=== PATIENT | female | born 1995 ===

== ENCOUNTER 2016-08-15 12:30 | Emergency (ER) | payer BC, MEDICAID ==
--- NOTE | 2016-08-15 13:51 | UC ---
Eye Complaint HPI - HPI Summary HPI Summary: In recent days has been recovering from URI sx, sudden onset of b/l eye redness , irritation, tearing, and swelling last night. No visual changes, fever, or purulent drainage. No contact lens use or recent welding/hammering/grinding. - History of Current Complaint Chief Complaint: UCEye Stated Complaint: EYE ISSUE Time Seen by Provider: 08/15/16 13:22 Hx Obtained From: Patient Hx Last Menstrual Period: 07/30/16 ?: No Onset/Duration: Sudden Onset Timing: Constant Severity Initially: Mild Severity Currently: Moderate Location of Injury: Conjunctiva Character: Dull Aggravating Factor(s): Nothing Associated Signs And Symptoms: Positive: Drainage (Clear). Negative: Photophobia, Vision Impairment Bilateral - Risk Factors Penetrating Injury Risk Factor: Negative Globe Rupture Risk Factors: Negative - Allergies/Home Medications Allergies/Adverse Reactions: Allergies Allergy/AdvReac Type Severity Reaction Status Date / Time No Known Allergies Allergy Verified 08/15/16 13:28 PMH/Surg Hx/FS Hx/Imm Hx Previously Healthy: Yes - Surgical History Surgical History: None - Family History Known Family History: Positive: Hypertension - Social History Alcohol Use: Occasionally Substance Use Type: None Smoking Status (MU): Never Smoked Tobacco Review of Systems Constitutional: Negative Skin: Negative Eyes: Drainage, Eye Redness ENT: Negative Respiratory: Negative Cardiovascular: Negative Gastrointestinal: Negative Genitourinary: Negative Motor: Negative Neurovascular: Negative Musculoskeletal: Negative Neurological: Negative Psychological: Negative All Other Systems Reviewed And Are Negative: Yes Physical Exam Triage Information Reviewed: Yes Appearance: Well-Appearing, No Pain Distress, Well-Nourished Vital Signs: Initial Vital Signs Temp 99.8 F 08/15/16 13:22 Pulse 120 08/15/16 13:22 Resp 16 08/15/16 13:22 BP 136/73 08/15/16 13:22 Pulse Ox 100 08/15/16 13:22 Vital Signs Reviewed: Yes Eye Exam: Other - PERRL, no photophobia Eyes: Positive: Conjunctiva Inflamed - marked, bilat with lid swelling, Other: - no discharge or matter in eyelashes ENT Exam: Normal ENT: Positive: Normal ENT inspection, Hearing grossly normal, Pharynx normal, TMs normal Dental Exam: Normal Neck exam: Normal Neck: Positive: Supple, Nontender, No Lymphadenopathy Respiratory Exam: Normal Respiratory: Positive: Chest non-tender, Lungs clear, Normal breath sounds, No respiratory distress, No accessory muscle use Cardiovascular Exam: Normal Cardiovascular: Positive: RRR, No Murmur Musculoskeletal Exam: Normal Neurological Exam: Normal Neurological: Positive: Alert Psychological Exam: Normal Skin Exam: Normal Eye Complaint Course/Dx - Differential Dx/Diagnosis Provider Diagnoses: Bilat conjunctivitis, suspect viral Discharge - Discharge Plan Condition: Stable Disposition: HOME Prescriptions: Polymyx/Trimethoprim OPTH* [Polytrim OPHTH*] 1 drop BOTH EYES QID #1 btl Patient Education Materials: Conjunctivitis (ED) Referrals: Zenon Peters MD [Primary Care Provider] - Edd Lyn MD [Medical Doctor] - If Needed Additional Instructions: As we discussed, the features of your eye redness are strongly viral. We do not know for certain by looking, so I have prescribed an antibiotic drop. However, if you do not see clear improvement within 5-7 days, please stop the drops. See the orthopedic physical therapist listed here if you have worsening symptoms, visual changes, severe pain, or if you do not start to improve within 2 weeks.
== END 2016-08-15 13:58 | disposition home or self-care (01) ==
LOC: UCEAST 12:30
DX: H10.9 Unspecified conjunctivitis (principal)
CPT/HCPCS: 99202; G0463